=== PATIENT | female | born 1995 | race Caucasian/White ===

== ENCOUNTER 2018-11-21 00:05 | Inpatient (IN) | payer OTHER ==
[2018-11-21] MEDS: LACTATED RINGER'S 1,000 ML IV ×4 (00:54→08:09)
[2018-11-21] MEDS ORDERED: OXYTOCIN 30 UNITS/LR 500 ML IV ×3 (01:00→13:00)
[2018-11-21] MEDS ORDERED: MISOPROSTOL 200 MCG TAB PR ×2 (01:00→13:00)
[2018-11-21] MEDS ORDERED: CARBOPROST 250 MCG INJ IM ×2 (01:00→13:00)
[2018-11-21] MEDS ORDERED: LIDOCAINE 1% (MPF) 30 ML INJ INJ (01:00)
[2018-11-21] MEDS ORDERED: IBUPROFEN 600 MG TAB PO (01:00)
[2018-11-21] MEDS ORDERED: BUTORPHANOL 2 MG INJ IV (01:00)
[2018-11-21] MEDS ORDERED: METHYLERGONOVINE 0.2 MG INJ IM ×2 (01:00→13:00)
[2018-11-21] MEDS ORDERED: OXYCODONE/ASPIRIN (4.88/325) TAB PO (01:00)
[2018-11-21 01:19] LABS: ADD MAN DIFF? NO
[2018-11-21 01:23] LABS: WHITE BLOOD COUNT 13.4 10^3/ul (4.8-10.8)
[2018-11-21 01:23] LABS: BASOPHILS % 0.1 % (0.0-2.0); EOSINOPHILS # 0.1 10^3/ul (0.0-0.5); EOSINOPHILS % 0.5 % (0.0-7.0); HEMATOCRIT 31.9 % (37.0-47.0); HEMOGLOBIN 10.3 g/dl (12.0-16.0); LYMPHOCYTES # 1.7 10^3/ul (0.8-2.9); LYMPHOCYTES % 12.8 % (15.0-51.0); MEAN CORPUSCULAR HEMOGLOBIN 27.6 pg (29.0-33.0); MEAN CORPUSCULAR HGB CONC 32.3 g/dl (32.0-37.0); MEAN CORPUSCULAR VOLUME 85.5 fl (82.0-101.0); MEAN PLATELET VOLUME 9.8 fl (7.4-10.4); MONOCYTE # 1.1 10^3/ul (0.3-0.9); MONOCYTES % 8.2 % (0.0-11.0); NEUTROPHIL # 10.4 10^3/ul (1.6-7.5); NEUTROPHILS % 77.7 % (39.0-77.0); PLATELET COUNT 197 10^3/UL (140-415); RED BLOOD COUNT 3.73 10^6/ul (4.20-5.40); RED CELL DISTRIBUTION WIDTH 15.2 % (11.5-14.5)
[2018-11-21 01:38] LABS: INR 0.86; PROTIME 11.8 Sec (11.9-14.9); PT RATIO 0.9
[2018-11-21 01:39] LABS: PARTIAL THROMBOPLASTIN TIME 25.4 Sec (23.0-35.0)
[2018-11-21] MEDS: AMPICILLIN 2 GM/NS (PMX) 100 ML IV (02:05)
[2018-11-21 02:09] LABS: AMPHETAMINE/METHAMPHETAMINE Negative (NEGATIVE); BARBITURATES Negative (NEGATIVE); BENZODIAZEPINES Negative (NEGATIVE); CANNABINOIDS Negative (NEGATIVE); COCAINE Negative (NEGATIVE); OPIATES Negative (NEGATIVE)
[2018-11-21] MEDS ORDERED: FENTAnyl 2MCG/ML-ROPIV 0.2% 100 ML (02:09)
[2018-11-21 02:18] LABS: HEPATITIS B SURFACE ANTIGEN NEGATIVE (NEGATIVE)
[2018-11-21] MEDS ORDERED: NALBUPHINE HCL (10 MG/1 ML) INJ IV ×2 (02:30→10:00)
[2018-11-21] MEDS ORDERED: NALOXONE (0.4 MG/ML) INJ IV ×2 (02:30→10:00)
[2018-11-21] MEDS ORDERED: ONDANSETRON 4 MG INJ IV ×2 (02:30→10:00)
[2018-11-21] MEDS ORDERED: DIPHENHYDRAMINE 50 MG INJ IV ×3 (02:30→10:00)
[2018-11-21] MEDS ORDERED: FENTAnyl 2MCG/ML-ROPIV 0.2% 100 ML BAG EPI (02:30)
[2018-11-21] MEDS: OXYTOCIN 30 UNITS/LR 500 ML IV ×3 (03:26→16:23)
[2018-11-21] MEDS: AMPICILLIN 1 GM/NS (PMX) 50 ML IV ×4 (06:09→14:19)
[2018-11-21] MEDS: ACETAMINOPHEN 325 MG TAB PO (06:40)
[2018-11-21] MEDS ORDERED: CEFAZOLIN 2 GM/50 ML (PMX) 50 ML IVPB (08:35)
[2018-11-21] MEDS ORDERED: CLINDAMYCIN 900 MG/D5W (PMX) 50 ML IVPB ×2 (09:00→10:58)
[2018-11-21] MEDS ORDERED: LIDOCAINE 2% (SDV) 5 ML INJ (09:10)
[2018-11-21] MEDS ORDERED: LIDOCAINE 100 MG SYRINGE (09:10)
[2018-11-21] MEDS: GENTAMICIN 80 MG/NS (PMX) 50 ML IVPB ×3 (09:15→23:31)
[2018-11-21] MEDS ORDERED: METOCLOPRAMIDE 10 MG INJ (09:20)
[2018-11-21] MEDS ORDERED: ONDANSETRON 4 MG INJ (09:20)
[2018-11-21] MEDS ORDERED: OXYTOCIN 10 UNIT INJ ×2 (09:30→09:59)
[2018-11-21] MEDS ORDERED: MIDAZOLAM 1 MG/ML 2 ML INJ (09:31)
[2018-11-21] MEDS ORDERED: morphine SULFATE/PF (10 MG/10 ML) INJ (09:32)
[2018-11-21] MEDS ORDERED: MEPERIDINE 25 MG INJ IV (10:00)
[2018-11-21] MEDS ORDERED: ZOLPIDEM 5 MG TAB PO (10:00)
[2018-11-21] MEDS ORDERED: HYDROmorphONE 1 MG/ML SYG IV (10:00)
[2018-11-21] MEDS ORDERED: HYDROmorphONE 0.5 MG/0.5 ML SYG IV (10:00)
[2018-11-21] MEDS ORDERED: MIDAZOLAM 1 MG/ML 2 ML INJ IV (10:00)
[2018-11-21] MEDS ORDERED: KETOROLAC 60 MG INJ IM (10:00)
[2018-11-21] MEDS: KETOROLAC 30 MG INJ IV ×2 (10:51→23:25)
[2018-11-21] MEDS: CLINDAMYCIN 900 MG/D5W (PMX) 50 ML IVPB ×2 (10:59→18:10)
[2018-11-21] MEDS: CEFAZOLIN 2 GM/50 ML (PMX) 50 ML IVPB (11:47)
[2018-11-21] MEDS ORDERED: NACL 0.9% 3 ML SYG IV (13:00)
[2018-11-21 14:59] LABS: RAPID PLASMA REAGIN NONREACTIVE (NR)
[2018-11-21] MEDS: SENNA/DOCUSATE NA (8.6MG/50MG) TAB PO (20:54)
[2018-11-22] MEDS: CLINDAMYCIN 900 MG/D5W (PMX) 50 ML IVPB ×4 (00:24→18:38)
[2018-11-22] MEDS: LACTATED RINGER'S 1,000 ML IV (01:53)
[2018-11-22 07:30] LABS: ADD MAN DIFF? NO
[2018-11-22 07:37] LABS: BASOPHILS % 0.1 % (0.0-2.0); EOSINOPHILS % 0.2 % (0.0-7.0); HEMATOCRIT 27.7 % (37.0-47.0); HEMOGLOBIN 8.8 g/dl (12.0-16.0); LYMPHOCYTES # 0.8 10^3/ul (0.8-2.9); LYMPHOCYTES % 4.9 % (15.0-51.0); MEAN CORPUSCULAR HEMOGLOBIN 27.7 pg (29.0-33.0); MEAN CORPUSCULAR HGB CONC 31.8 g/dl (32.0-37.0); MEAN CORPUSCULAR VOLUME 87.1 fl (82.0-101.0); MEAN PLATELET VOLUME 9.8 fl (7.4-10.4); MONOCYTE # 0.7 10^3/ul (0.3-0.9); MONOCYTES % 4.4 % (0.0-11.0); NEUTROPHIL # 14.6 10^3/ul (1.6-7.5); NEUTROPHILS % 89.7 % (39.0-77.0); PLATELET COUNT 156 10^3/UL (140-415); RED BLOOD COUNT 3.18 10^6/ul (4.20-5.40); RED CELL DISTRIBUTION WIDTH 15.6 % (11.5-14.5)
[2018-11-22 07:37] LABS: WHITE BLOOD COUNT 16.2 10^3/ul (4.8-10.8)
[2018-11-22] MEDS: LANOLIN HPA 1 PKT TOP (08:49)
[2018-11-22] MEDS: KETOROLAC 30 MG INJ IV (08:49)
[2018-11-22] MEDS: SENNA/DOCUSATE NA (8.6MG/50MG) TAB PO ×2 (08:49→20:55)
[2018-11-22] MEDS: GENTAMICIN 80 MG/NS (PMX) 50 ML IVPB ×3 (08:50→23:49)
[2018-11-22] MEDS: IBUPROFEN 600 MG TAB PO ×3 (12:00→23:53)
[2018-11-22] MEDS: OXYCODONE/ACETAMINOPHEN (5/325) TAB PO ×2 (12:48→21:00)
[2018-11-23] MEDS: CLINDAMYCIN 900 MG/D5W (PMX) 50 ML IVPB ×3 (00:33→11:36)
[2018-11-23] MEDS: IBUPROFEN 600 MG TAB PO ×4 (05:56→23:39)
[2018-11-23] MEDS: SENNA/DOCUSATE NA (8.6MG/50MG) TAB PO ×2 (08:41→21:13)
[2018-11-23] MEDS: GENTAMICIN 80 MG/NS (PMX) 50 ML IVPB ×2 (08:42→16:00)
[2018-11-23] MEDS: OXYCODONE/ACETAMINOPHEN (5/325) TAB PO (17:16)
[2018-11-24] MEDS: IBUPROFEN 600 MG TAB PO ×2 (05:31→11:38)
[2018-11-24] MEDS: SENNA/DOCUSATE NA (8.6MG/50MG) TAB PO (08:31)
[2018-11-24] MEDS: OXYCODONE/ACETAMINOPHEN (5/325) TAB PO (10:48)
[2018-11-24] MEDS: DIPHTH/TET/ACEL PERTUSS (ADULT) 0.5 ML VIAL IM* (11:38)
== END 2018-11-24 17:40 | disposition home or self-care (01) | DRG 786 ==
LOC: OBT 00:05 → L-D 00:06 → OBT 00:28 → L-D 00:28 → PP1 12:45
PROVIDERS: Obstetrics & Gynecology
PROC: 10D00Z1 Extraction of Products of Conception, Low, Open Approach (ICD-10-PCS; principal; 2018-11-21)
DX: O62.0 Primary inadequate contractions (principal); O41.1230 Chorioamnionitis, third trimester, not applicable or unspecified; O76 Abnormality in fetal heart rate and rhythm complicating labor and delivery; Z3A.39 39 weeks gestation of pregnancy; Z37.0 Single live birth; Z23 Encounter for immunization
CPT/HCPCS: 62319; 80307; 85025; 85610; 85730; 86592; 86850; 86900; 86901; 87340; 88307; 90715; 99464